=== PATIENT | female | born 1980 | race Caucasian/White ===

== ENCOUNTER → 2019-07-04 12:46 | Outpatient (BNVA) | payer BC, SELFPAY | PROVIDERS: PCP Family Medicine; Visit Provider Urology | DX: R39.89 Other symptoms and signs involving the genitourinary system (principal); R30.0 Dysuria; N39.46 Mixed incontinence; Z87.442 Personal history of urinary calculi; N39.0 Urinary tract infection, site not specified | CPT/HCPCS: 81001; 87086 ==

== ENCOUNTER → 2020-05-23 13:30 | Outpatient (BNVA) | payer BC, SELFPAY | PROVIDERS: PCP Nurse Practitioner; Visit Provider Nurse Practitioner Family | DX: N39.0 Urinary tract infection, site not specified (principal) | CPT/HCPCS: 81003; 87086 ==